=== PATIENT | male | born 1945 | race Caucasian/White ===

== ENCOUNTER 2017-10-02 12:10 | Day surgery (SDC) | payer OTHER, BC ==
[2017-10-01 16:53] VITALS: BMI 26.4
[2017-10-02] MEDS ORDERED: MIDAZOLAM HCL 2 MG/2 ML SINGLE DOSE VIAL ONE (15:28)
[2017-10-02] MEDS ORDERED: PROPOFOL 20 ML ONE (15:28)
[2017-10-02] MEDS ORDERED: ROCURONIUM BROMIDE 50 MG/5 ML VIAL ONE (15:35)
[2017-10-02] MEDS ORDERED: ceFAZolin SODIUM 1 GM VIAL ONE (15:40)
[2017-10-02] MEDS ORDERED: LIDOCAINE HCL/PF 2% SDV 5ML VIAL ONE (15:40)
[2017-10-02] MEDS ORDERED: ceFAZolin SODIUM 1 GM VIAL IVPB ONE (15:43)
[2017-10-02] MEDS ORDERED: DEXAMETHASONE SOD PHOSPHATE 4 MG/1 ML VIAL ONE (15:43)
[2017-10-02] MEDS ORDERED: GLYCOPYRROLATE 0.2 MG/1 ML VIAL ONE (16:00)
[2017-10-02] MEDS ORDERED: NEOSTIGMINE METHYLSULFATE 0.5 MG/1 ML - 10 ML MDV ONE (16:01)
[2017-10-02] MEDS ORDERED: ONDANSETRON 4 MG/2 ML VIAL IVPUSH PRN (16:36)
[2017-10-02] MEDS ORDERED: PROMETHAZINE HCL 25 MG/1 ML VIAL IVPUSH PRN (16:36)
[2017-10-02] MEDS ORDERED: LACTATED RINGERS SOLUTION 1,000 ML IV SCH (16:45)
[2017-10-02] MEDS ORDERED: ACETAMINOPHEN INJECTION 100 ML IVPB ONE (16:47)
[2017-10-02] MEDS ORDERED: ACETAMINOPHEN 1000 MG/100 ML VIAL (NON FORMULARY) IVPB ONE (17:30)
[2017-10-02] MEDS ORDERED: oxyCODONE HCL 5 MG TABLET ONE (17:31)
[2017-10-02 19:04] VITALS: BP 127/73; PULSE 59; TEMP 98
--- NOTE | 2017-10-04 15:42 | PATH ---
Surgical Pathology Report Patient Name: MAICO MCBRIDE [facility]. Rec. #: [id number] /Age/Gender: 1945 (Age: 72) / M Account: [id number] Location: [facility] SURGICAL Taken: 10/02/2017 Received: 10/03/2017 Reported: 10/04/2017 Physicians: Naif Ko M.D. Specimen(s) Received PROSTATE CHIPS Clinical History Hypertrophy of prostate Final Diagnosis PROSTATE CHIPS, TRANSURETHRAL PROSTATIC RESECTION: ADENOCARCINOMA OF PROSTATE, ERIKA SCORE 3 + 3 = 6. GRADE GROUP: GROUP 1. ESTIMATED PLACENTAGE OF PROSTATE TISSUE INVOLVED BY TUMOR: 4% NUMBER PROSITIVE CHIPS: 2 NO DEFINITE LYMPHOVASCULAR INVASION OR PERINEURAL INVASION IDENTIFIED. PROSTATIC HYPERPLASIA AND CHRONIC INFLAMMATION PRESENT. Intradepartmental case reviewed with consensus on diagnosis. Comments Surgical Pathology Cancer Case Summary Procedure: Transurethral prostatic resection Histologic Type Acinar adenocarcinoma Histologic Grade Erika Pattern Primary (Predominant) Erika Pattern Pattern 3 Secondary (Worst Remaining) [place] Pattern Pattern 3 Total [place] Score: 6 Grade Group Grade group 1 Intraductal Carcinoma (IDC) Not identified Tumor Quantitation Estimated percentage of prostatic tissue involved by tumor: 4% Number of positive chips: 2 Total number of chips: approximate 45 Lymphovascular Invasion Not identified Perineural Invasion Not identified Additional Pathologic Findings (select all that apply) Nodular prostatic hyperplasia chronic inflammation Electronically Signed Dang Sam M.D. Addendum Reported: 10/16/2017 Addendum Diagnosis This case was discussed with Dr. Mckeon on October 15, 2017. Dang Sam M.D. Gross Description Received in formalin labeled "prostate tissue," is a 3.7 x 2.8 x 0.4 cm aggregate of tomlin, firm to rubbery portions of tissue, consistent with prostate chips. The specimen is entirely submitted in 3 cassettes. 10/03/2017 saudi10/03/2017
--- NOTE | 2017-10-14 22:01 | OP ---
DATE OF OPERATION: 10/02/2017 SURGEON: Keith Mckeon MD ANESTHESIA: General. PREOPERATIVE DIAGNOSIS: Benign prostatic hypertrophy, rule out carcinoma of the prostate. POSTOPERATIVE DIAGNOSIS: Benign prostatic hypertrophy, rule out carcinoma of the prostate. PROCEDURE: Transurethral resection and vaporization of the prostate. FINDINGS: Trilobar hypertrophy of the prostate noted, essentially a large median bar and some posterior lobe. DESCRIPTION OF PROCEDURE: Patient, in lithotomy position, under anesthesia, was prepped and draped in the usual manner. Using the resectoscope, resection of the prostate was carried out. The lateral lobes and the anterior lobes were vaporized as much as possible. Then, very deep tissue resection was carried out in both the lateral lobes and the posterior lobe. This was to ensure we got good tissue from this part to rule out carcinoma of the prostate. All the bleeding points were electrocoagulated, and all the resected tissue is removed using Ellik evacuator. A 22 Young was left indwelling. Patient tolerated the procedure and left the operating room in satisfactory condition. Naif VALENTIN/[id number]
== END 2017-10-02 19:10 | disposition home or self-care (01) ==
LOC: JASU-SURG 12:10
PROVIDERS: ATTEND Urology
PROC: 0VT08ZZ Resection of Prostate, Via Natural or Artificial Opening Endoscopic (ICD-10-PCS; principal; 2017-10-02 14:00)
DX: C61 Malignant neoplasm of prostate (principal); I10 Essential (primary) hypertension; E11.9 Type 2 diabetes mellitus without complications; Z79.84 Long term (current) use of oral hypoglycemic drugs
CPT/HCPCS: 82962; 88305-TC; 94760; J0131